=== PATIENT | female | born 1970 | race Caucasian/White ===

== ENCOUNTER 2017-12-03 08:49 | Emergency (ER) | payer OTHER, SELFPAY ==
[2017-12-03 08:58] VITALS: BP 146/79; PULSE 63; RESP 18; TEMP 36.7; O2SAT 95
--- NOTE | 2017-12-03 09:07 | DI.RAD_ITS ---
SYMPTOM/DIAGNOSIS: COUGH PA AND LATERAL CHEST: The heart is normal in size. The lungs are clear. The mediastinal structures and pleura appear intact. CONCLUSION: Normal chest. No evidence of acute cardiopulmonary disease.
--- NOTE | 2017-12-03 09:24 | W.ED.GENAD ---
Discharge Plan Disposition Patient Disposition: HOME Condition: Stable Discharge Details Chief Complaint: RespSymp Clinical Impression: Acute exacerbation of COPD with asthma Primary Care Provider: NONE,NONE ED Provider: Jeffrey Mendoza Home Meds and New Rx's Prescriptions: New prednisone 20 mg tablet 60 mg PO DAILY 5 Days Qty: 15 RF: 0 levofloxacin 750 mg tablet 750 mg PO DAILY Qty: 7 RF: 0 Continue ibuprofen [Ibuprofen IB] 200 MG tablet 800 mg PO TID PRN PRNRF: 0 Discharge Instructions Instructions: COPD (Chronic Obstructive Pulmonary Disease) (ED) Discharge Data Discharge Physician: Jeffrey Mendoza Medical Decision Making MDM Narrative Medical decision making narrative: 47 yo female with hx of asthma and chronic smoker who hasn't had inhalers for quite some time due to not having a pcp comes in with cc of 2-3 days of cough and wheezing. Her exam is consistent with copd exacerbation, will treat with albuterol and steroids and obtain chest xray to eval for infiltrate. Has no cheat pain, evidence of dvt and exam consistent with copd so doubt entities such as chf, acs or pe at this time pt remains stable, xray unremarkable on my read, but given I suspect she has copd and not asthma will start her on abx for likely copd exacerbation. She is going to contact a pcp on her own (offered to have her placed on our f/u list but she declined). REturn precautions given Differential Diagnosis copd exacerbation, pna, asthma ECG Data Attestation: I personally reviewed and interpreted this ECG (s) as follows: Prior ECG tracings: not available for review Interpretation: sinus rhythm, rate of 60, normal pr, no acute ischemic findings HPI General Mode of arrival: ambulatory. Date/Time Provider Initiated Documentation: 12/03/17 08:54. Limitations to Documentation: no limitations. Information obtained by: patient. History of Present Illness 47 year old F presents to the emergency department with the chief complaint of cough, described as moderate, with intensity rated at 3. No relieving factors improve symptom(s), No exacerbating factors reported . Patient notes other (wheezing). Patient did receive the following treatments prior to arrival, none Related Data Home Medications Medication Instructions Recorded Confirmed ibuprofen [Ibuprofen IB] 800 mg PO TID PRN PRN 03/21/16 12/03/17 Previous Rx's Medication Instructions Recorded levofloxacin 750 mg PO DAILY #7 tab 12/03/17 prednisone 60 mg PO DAILY 5 Days #15 tab 12/03/17 Allergies Allergy/AdvReac Type Severity Reaction Status Date / Time No Known Allergies Allergy Unverified 12/03/17 09:03 General Stated Complaint: RespSymp BARON: 3 Review of Systems Review of Systems All systems reviewed & are unremarkable except as noted in HPI and below Constitutional Denies fever(s) and Denies weakness Eyes Patient Denies loss of vision ENT Denies change in voice Cardiovascular Denies chest pain Respiratory Reports cough and Reports wheezing Gastrointestinal Denies abdominal pain, Denies nausea and Denies vomiting Genitourinary Denies dysuria Musculoskeletal Denies joint swelling Integumentary/Breasts Denies rash Neurologic Denies loss of vision and Denies weakness Psychiatric Denies depression Endocrine Denies cold intolerance and Denies heat intolerance Allergic/Immunologic Reports urticaria and Reports wheezing [facility] Social History Smoking/Tobacco Use Status: Current every day Exam Const General: no acute distress Orientation: alert HENMT Head: normal to inspection Ears: external ears normal General nose exam: external nose normal Mouth: moist mucous membranes Eyes General: appearance normal, both eyes and all related structures Neck Neck: normal visual inspection Resp Effort & Inspection: normal respiratory effort, able to speak in complete sentences and other (wheezing at the bases bilaterally) Cardio Rate: regular rate Skin General skin exam: no rashes or lesions noted Neuro General: alert and oriented x3 Extrem General: normal to inspection Psych Mental Status: mental status grossly normal Course Vital Signs Temperature 36.7 C 12/03/17 08:58 Pulse 63 12/03/17 08:58 Respiratory Rate 18 12/03/17 08:58 Blood Pressure 146/79 H 12/03/17 08:58 Pulse Oximetry 95 12/03/17 08:58 Temperature 36.7 C 12/03/17 08:58 Pulse 63 12/03/17 08:58 Respiratory Rate 18 12/03/17 08:58 Blood Pressure 146/79 H 12/03/17 08:58 Pulse Oximetry 95 12/03/17 08:58
--- NOTE | 2017-12-03 09:28 | ED.GENADUL_ITS ---
Discharge Plan Disposition Patient Disposition: HOME Condition: Stable Discharge Details Chief Complaint: RespSymp Clinical Impression: Acute exacerbation of COPD with asthma Primary Care Provider: NONE,NONE ED Provider: Jeffrey Mendoza Home Meds and New Rx's Prescriptions: New prednisone 20 mg tablet 60 mg PO DAILY 5 Days Qty: 15 RF: 0 levofloxacin 750 mg tablet 750 mg PO DAILY Qty: 7 RF: 0 Continue ibuprofen [Ibuprofen IB] 200 MG tablet 800 mg PO TID PRN PRNRF: 0 Discharge Instructions Instructions: COPD (Chronic Obstructive Pulmonary Disease) (ED) Discharge Data Discharge Physician: Jeffrey Mendoza Medical Decision Making MDM Narrative Medical decision making narrative: 47 yo female with hx of asthma and chronic smoker who hasn't had inhalers for quite some time due to not having a pcp comes in with cc of 2-3 days of cough and wheezing. Her exam is consistent with copd exacerbation, will treat with albuterol and steroids and obtain chest xray to eval for infiltrate. Has no cheat pain, evidence of dvt and exam consistent with copd so doubt entities such as chf, acs or pe at this time pt remains stable, xray unremarkable on my read, but given I suspect she has copd and not asthma will start her on abx for likely copd exacerbation. She is going to contact a pcp on her own (offered to have her placed on our f/u list but she declined). REturn precautions given Differential Diagnosis copd exacerbation, pna, asthma ECG Data Attestation: I personally reviewed and interpreted this ECG (s) as follows: Prior ECG tracings: not available for review Interpretation: sinus rhythm, rate of 60, normal pr, no acute ischemic findings HPI General Mode of arrival: ambulatory . Date/Time Provider Initiated Documentation: 12/03/17 08:54 . Limitations to Documentation: no limitations . Information obtained by: patient . History of Present Illness 47 year old F presents to the emergency department with the chief complaint of cough, described as moderate, with intensity rated at 3. No relieving factors improve symptom(s), No exacerbating factors reported . Patient notes other (wheezing). Patient did receive the following treatments prior to arrival, none Related Data Home Medications Medication Instructions Recorded Confirmed ibuprofen [Ibuprofen IB] 800 mg PO TID PRN PRN 03/21/16 12/03/17 Previous Rx's Medication Instructions Recorded levofloxacin 750 mg PO DAILY #7 tab 12/03/17 prednisone 60 mg PO DAILY 5 Days #15 tab 12/03/17 Allergies Allergy/AdvReac Type Severity Reaction Status Date / Time No Known Allergies Allergy Unverified 12/03/17 09:03 General Stated Complaint: RespSymp BARON: 3 Review of Systems Review of Systems All systems reviewed & are unremarkable except as noted in HPI and below Constitutional Denies fever(s) and Denies weakness Eyes Patient Denies loss of vision ENT Denies change in voice Cardiovascular Denies chest pain Respiratory Reports cough and Reports wheezing Gastrointestinal Denies abdominal pain, Denies nausea and Denies vomiting Genitourinary Denies dysuria Musculoskeletal Denies joint swelling Integumentary/Breasts Denies rash Neurologic Denies loss of vision and Denies weakness Psychiatric Denies depression Endocrine Denies cold intolerance and Denies heat intolerance Allergic/Immunologic Reports urticaria and Reports wheezing [facility] Social History Smoking/Tobacco Use Status: Current every day Exam Const General: no acute distress Orientation: alert HENMT Head: normal to inspection Ears: external ears normal General nose exam: external nose normal Mouth: moist mucous membranes Eyes General: appearance normal, both eyes and all related structures Neck Neck: normal visual inspection Resp Effort & Inspection: normal respiratory effort, able to speak in complete sentences and other (wheezing at the bases bilaterally) Cardio Rate: regular rate Skin General skin exam: no rashes or lesions noted Neuro General: alert and oriented x3 Extrem General: normal to inspection Psych Mental Status: mental status grossly normal Course Vital Signs Temperature 36.7 C 12/03/17 08:58 Pulse 63 12/03/17 08:58 Respiratory Rate 18 12/03/17 08:58 Blood Pressure 146/79 H 12/03/17 08:58 Pulse Oximetry 95 12/03/17 08:58 Temperature 36.7 C 12/03/17 08:58 Pulse 63 12/03/17 08:58 Respiratory Rate 18 12/03/17 08:58 Blood Pressure 146/79 H 12/03/17 08:58 Pulse Oximetry 95 12/03/17 08:58
[2017-12-03] MEDS: predniSONE 20 MG TAB 60 MG PO (09:41)
[2017-12-03] MEDS: Albuterol HFA 8 GM 60 PUFF INH IH (09:41)
[2017-12-03] MEDS: Inhaler, Assist Device 1 EACH MC (09:43)
[2017-12-03 10:15] VITALS: BP 142/81; PULSE 57; RESP 14; TEMP 36.9; O2SAT 96
[2017-12-03 10:25] VITALS: BP 142/81; PULSE 57; RESP 14; TEMP 36.9; O2SAT 96
== END 2017-12-03 10:26 | disposition home or self-care (01) ==
PROVIDERS: Emergency Provider Emergency Medicine
DX: J44.1 Chronic obstructive pulmonary disease with (acute) exacerbation (principal); J45.909 Unspecified asthma, uncomplicated; F17.210 Nicotine dependence, cigarettes, uncomplicated
CPT/HCPCS: 93005; 99284; 71046; 93010; 99285; J7512

== ENCOUNTER 2019-04-11 06:49 | Emergency (ER) | payer SELFPAY ==
[2019-04-11 06:53] VITALS: BP 115/91; PULSE 101; RESP 16; TEMP 36.7; O2SAT 98
[2019-04-11] MEDS: Normal Saline 1,000 ML 1000 ML IV (07:26)
[2019-04-11] MEDS: Ondansetron 4 MG/2 ML VIAL IVP (07:26)
[2019-04-11] MEDS: Normal Saline Flush 10 ML SYR IVP (07:26)
[2019-04-11 07:28] LABS: Abs Immature Grans 0.01 k/cumm (0.0-0.09); Absolute Basophil Count 0.02 k/cumm (0.0-0.2); Absolute Eosinophil Count 0.18 k/cumm (0.0-0.7); Absolute Lymphocyte Count 0.74 k/cumm (1.2-3.4); Absolute Monocyte Count 0.52 k/cumm (0.11-0.7); Absolute Neutrophil Count 8.81 k/cumm (1.2-6.7); Basophils % 0.2; Eosinophils % 1.8; HCT 46.9 % (36.0-46.0); HGB 15.6 g/dL (12.0-15.5); Immature Grans % 0.1 %; Lymphocytes % 7.2; Mean Corp. HGB Concentration 33.3 g/dL (32.0-36.0); Mean Corpuscular Hemoglobin 28.8 pg (27.0-33.0); Mean Corpuscular Volume 86.7 fL (80-95); Mean Platelet Volume 10.4 fL (8.0-11.0); Monocytes % 5.1; Neutrophils % 85.6; Platelet Count 278 x1000/uL (130-400); RBC 5.41 m/cumm (4.00-5.20); White Blood Cell Count 10.28 k/cumm (4.4-10.8)
[2019-04-11 07:39] LABS: ALT 23 U/L (14-59); AST 21 U/L (15-37); Albumin 3.7 g/dL (3.4-5.0); Alkaline Phosphatase 94 U/L (46-116); Anion Gap 9.5 mmol/L (3-11); BUN 17 mg/dL (7-18); Bilirubin, Total 0.9 mg/dL (0.2-1.0); CO2 25.5 mmol/L (21.0-32.0); CREATININE 0.83 mg/dL (0.55-1.02); Calcium 8.8 mg/dL (8.5-10.1); Chloride 106 mmol/L (98-107); Glucose 106 mg/dL (74-106); Sodium 141 mmol/L (136-145); Total Protein 7.5 g/dL (6.4-8.2)
--- NOTE | 2019-04-11 07:48 | ED.GENADUL_ITS ---
Discharge Plan Disposition Patient Disposition: HOME Condition: Stable Discharge Details Chief Complaint: Nausea/Vomit/Diar Clinical Impression: Vomiting, Urinary tract infection, Dehydration Primary Care Provider: None,None ED Provider: Vero Villanueva Home Meds and New Rx's Prescriptions: New cephalexin [Keflex] 500 mg capsule 500 mg PO TID Qty: 29 RF: 0 ondansetron 4 mg tablet,disintegrating 4 mg PO Q8H PRN (Reason: nausea and vomiting) Qty: 8 RF: 0 Continued ibuprofen [Ibuprofen IB] 200 MG tablet 800 mg PO TID PRN PRNRF: 0 Discharge Instructions Instructions: Cephalexin (By mouth), Ondansetron (By mouth), Dehydration (ED), Kidney Infection (ED), Acute Nausea and Vomiting (ED), Acute Diarrhea (ED) Additional Instructions: Please return immediately to the emergency department if you develop any new or worsening symptoms, if your condition does not improve as expected, or if you become otherwise concerned. It is extremely important that you call soon as possible to make an appointment to be seen in follow-up for this visit by your primary care doctor. Please be sure to drink plenty of fluids as we discussed. Discharge Data Discharge Date/Time-TO BE ENTERED AT DEPARTURE: 04/11/19 11:05 Medical Decision Making <Nilo Villanueva MD - Last Filed: 04/26/19 17:28> 89 --48-year-old female with history of renal stones here with nausea, vomiting, diarrhea over the past 2 to 3 days. She has diffuse abdominal cramping. Abdominal exam is benign. She does have right flank pain and right CVA tenderness. Dry mucous membranes. Suspect gastroenteritis. Consider biliary disease. Will check LFTs and lipase. Concern for dehydration. Consider electrolyte abnormalities. Consider renal stone. Plan to give IV fluid bolus and check labs and reassess. If creatinine normal, will give Toradol. <Vero Villanueva MD - Last Filed: 04/11/19 11:12> Elle Antony was signed out to me by Dr. Villanueva at time of shift change with UA, reassessment pending. UA concerning for possible UTI. 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 Patient reports that she is feeling better after fluids. Reports that her pain is mild and manageable. Patient is acutely nontoxic appearing, in no distress. Out of concern for possible infected stone, plan for CT renal. CT negative for acute process. Plan to treat for pyelonephritis with 3 times daily Keflex, also Rx for Zofran. Patient taking p.o. in the emergency department without issue. I had a lengthy discussion with patient regarding importance of adequate hydration at home. Patient reports that she does not currently have insurance or primary care doctor. Patient placed on care management list for assistance with insurance and establishing a PCP. I had a lengthy discussion with Patient regarding return to emergency department precautions, home care, and importance of outpatient follow-up. Pt verbalizes understanding of the plan and is amenable. Patient discharged to home with clear plan for outpatient follow-up. All questions were answered. Disposition decision was made weighing the risks and benefits of hospitalization versus outpatient treatment, the risk for further decompensation, and the patient's wishes. Medical Records Medical records reviewed: Yes I reviewed the patient's medical records. Lab Data Lab results reviewed: Yes I reviewed the patient's lab results. Labs: 04/11/19 08:47 Urine - Reflex from Ua Urine Culture - Pending Laboratory Tests Range/Units 04/11/19 04/11/19 04/11/19 07:17 07:17 08:47 WBC (4.4-10.8) k/cumm 10.28 RBC (4.00-5.20) m/cumm 5.41 H Hgb (12.0-15.5) g/dL 15.6 H Hct (36.0-46.0) % 46.9 H MCV (80-95) fL 86.7 MCH (27.0-33.0) pg 28.8 MCHC (32.0-36.0) g/dL 33.3 RDW (11.7-14.6) % 13.0 Plt Count (130-400) x1000/uL 278 MPV (8.0-11.0) fL 10.4 Immature Gran % % 0.1 Neutrophils % 85.6 Lymphocytes % 7.2 Monocytes % 5.1 Eosinophils % 1.8 Basophils % 0.2 Absolute Neutrophils (1.2-6.7) k/cumm 8.81 H Absolute Lymphocytes (1.2-3.4) k/cumm 0.74 L Absolute Monocytes (0.11-0.7) k/cumm 0.52 Absolute Eosinophils (0.0-0.7) k/cumm 0.18 Absolute Basophils (0.0-0.2) k/cumm 0.02 Sodium (136-145) mmol/L 141 Potassium (3.5-5.1) mmol/L 4.0 Chloride (98-107) mmol/L 106 Carbon Dioxide (21.0-32.0) mmol/L 25.5 Anion Gap (3-11) mmol/L 9.5 BUN (7-18) mg/dL 17 Creatinine (0.55-1.02) mg/dL 0.83 Estimated GFR/1.73 m2 (mL/min/1.73m2) >= 60.00 Glucose (74-106) mg/dL 106 Calcium (8.5-10.1) mg/dL 8.8 Total Bilirubin (0.2-1.0) mg/dL 0.9 AST (15-37) U/L 21 ALT (14-59) U/L 23 Alkaline Phosphatase (46-116) U/L 94 Total Protein (6.4-8.2) g/dL 7.5 Albumin (3.4-5.0) g/dL 3.7 Urine Color (Yellow) Yellow Urine Clarity (Clear) Clear Urine pH (5-8) 6.0 Ur Specific [facility] (1.005-1.025) 1.025 Urine Protein (Negative) mg/dL Negative Urine Ketones (Negative) mg/dL Negative Urine Blood (Negative) Trace-intact H Urine Nitrite (Negative) Negative Urine Bilirubin (Negative) Negative Urine Urobilinogen (Up TO 0.2) EU/dL 0.2 Ur Leukocyte Esterase (Negative) Trace H Urine RBC (0-2) HPF 3-5 H Urine WBC (0-5) HPF 5-10 Ur Epithelial Cells (Negative) HPF Rare Urine Crystals (Negative) HPF Negative Urine Bacteria (Negative) HPF Few Urine Casts (Negative) LPF Negative Urine Mucus (Negative) Trace Urine Other (Negative) Rare transitional Ur Culture Indicated? Yes Urine Glucose (Negative) mg/dL Negative HPI <Nilo Villanueva MD - Last Filed: 04/26/19 17:28> General Mode of arrival: ambulatory . Date/Time Provider Initiated Documentation: 04/11/19 07:07 . Limitations to Documentation: no limitations . Information obtained by: patient . HPI Narrative: 48-year-old female with history of renal stones, presents with chief complaint of loose stool. Patient notes that she has had diarrhea for the past 3 days. Stool is brown and watery. Nonbloody. Symptoms have been moderate to severe. She feels like she is dehydrated. She has associated nausea and vomiting for the past 2 days. She also notes some diffuse abdominal cramping. She does state positive sick contact including relative with similar gastrointestinal symptoms. No recent long distance travel. Patient also states that she has some right posterior flank pain over the past 1 to 2 days. She states that she feels it is her kidney. Pain is mild to moderate ache. No associated dysuria or hematuria. Patient believes symptoms related to dehydration. Related Data Home Medications Medication Instructions Recorded Confirmed ibuprofen [Ibuprofen IB] 800 mg PO TID PRN PRN 03/21/16 04/11/19 cephalexin [Keflex] 500 mg PO TID #29 cap 04/11/19 ondansetron 4 mg PO Q8H PRN #8 tab 04/11/19 Previous Rx's Medication Instructions Recorded cephalexin [Keflex] 500 mg PO TID #29 cap 04/11/19 ondansetron 4 mg PO Q8H PRN #8 tab 04/11/19 Allergies Allergy/AdvReac Type Severity Reaction Status Date / Time No Known Allergies Allergy Unverified 12/03/17 09:03 General Stated Complaint: Nausea/Vomit/Diar BARON: 3 Review of Systems <Nilo Villanueva MD - Last Filed: 04/26/19 17:28> All systems reviewed & are unremarkable except as noted in HPI and below Constitutional Constitutional: Denies fever(s) Gastrointestinal Gastrointestinal: Denies hematochezia, Reports diarrhea, Reports nausea and Reports vomiting Genitourinary Genitourinary: Reports as per HPI PFSH <Nilo Villanueva MD - Last Filed: 04/26/19 17:28> Medical History (Updated 04/11/19 @ 07:52 by Nilo Villanueva MD) Kidney stone (Chronic) Social History Smoking/Tobacco Use Status: Former Tobacco Use Quit Date: 11/30/17 Alcohol Intake: never Drug use: Rarely Substance use type: marijuana Do you feel safe at home: Yes Do you feel safe in your relationship?: Yes Exam <Nilo Villanueva MD - Last Filed: 04/26/19 17:28> Const General: cooperative and no acute distress HENMT Mouth: mucous membranes dry Eyes Conjunctivae: normal conjunctivae Sclera: normal sclerae Neck Neck: trachea midline and supple Resp Auscultation: clear to auscultation bilaterally, no rales, no rhonchi and no wheezes Cardio Jugular venous pressure: no JVD Rate: regular rate and not tachycardic Rhythm: regular rhythm GI Palpation: soft, not firm, no guarding, no masses, not rigid and nontender Back/Spine/Pelvis Back: CVA tenderness (Right) Skin General skin exam: no rashes or lesions noted Neuro General: alert, awake and tone normal Extrem General: no edema Psych Appearance: grossly normal Mental Status: mental status grossly normal Course <Nilo Villanueva MD - Last Filed: 04/26/19 17:28> Vital Signs Vital signs: Vital Signs Temperature 36.7 C 04/11/19 06:53 Pulse 101 H 04/11/19 06:53 Respiratory Rate 16 04/11/19 06:53 Blood Pressure 115/91 H 04/11/19 06:53 Pulse Oximetry 98 04/11/19 06:53 Temperature 36.7 C 04/11/19 06:53 Temperature Source Skin 04/11/19 06:53 Pulse 101 H 04/11/19 06:53 Respiratory Rate 16 04/11/19 06:53 Respiratory Effort 04/11/19 06:57 Blood Pressure 115/91 H 04/11/19 06:53 Blood Pressure Position Sitting 04/11/19 06:53 Pulse Oximetry 98 04/11/19 06:53 Oxygen Delivery Method Room Air 04/11/19 06:53 Oxygen Flow Rate 0 04/11/19 06:53 Pain Level 8 04/11/19 06:53 Lab/Test Results Lab/Test Results: Laboratory Tests Range/Units 04/11/19 04/11/19 07:17 07:17 WBC (4.4-10.8) k/cumm 10.28 RBC (4.00-5.20) m/cumm 5.41 H Hgb (12.0-15.5) g/dL 15.6 H Hct (36.0-46.0) % 46.9 H MCV (80-95) fL 86.7 MCH (27.0-33.0) pg 28.8 MCHC (32.0-36.0) g/dL 33.3 RDW (11.7-14.6) % 13.0 Plt Count (130-400) x1000/uL 278 MPV (8.0-11.0) fL 10.4 Immature Gran % % 0.1 Neutrophils % 85.6 Lymphocytes % 7.2 Monocytes % 5.1 Eosinophils % 1.8 Basophils % 0.2 Absolute Neutrophils (1.2-6.7) k/cumm 8.81 H Absolute Lymphocytes (1.2-3.4) k/cumm 0.74 L Absolute Monocytes (0.11-0.7) k/cumm 0.52 Absolute Eosinophils (0.0-0.7) k/cumm 0.18 Absolute Basophils (0.0-0.2) k/cumm 0.02 Sodium (136-145) mmol/L 141 Potassium (3.5-5.1) mmol/L 4.0 Chloride (98-107) mmol/L 106 Carbon Dioxide (21.0-32.0) mmol/L 25.5 Anion Gap (3-11) mmol/L 9.5 BUN (7-18) mg/dL 17 Creatinine (0.55-1.02) mg/dL 0.83 Estimated GFR/1.73 m2 (mL/min/1.73m2) >= 60.00 Glucose (74-106) mg/dL 106 Calcium (8.5-10.1) mg/dL 8.8 Total Bilirubin (0.2-1.0) mg/dL 0.9 AST (15-37) U/L 21 ALT (14-59) U/L 23 Alkaline Phosphatase (46-116) U/L 94 Total Protein (6.4-8.2) g/dL 7.5 Albumin (3.4-5.0) g/dL 3.7 Sign Out <Nilo Villanueva MD - Last Filed: 04/26/19 17:28> Sign Out Data: Sign Out Comment: Care signed out to Dr. Vero Villanueva with plan to follow-up on urinalysis, reassess patient and determine disposition. Last updated by Nilo Villanueva MD at 04/11/19 08:25
[2019-04-11] MEDS: Lactated Ringers 1,000 ML 1000 ML IV (08:05)
[2019-04-11] MEDS: Ketorolac 30 MG/ML VIAL IVP (08:05)
[2019-04-11 09:00] LABS: Bilirubin Negative (Negative); Blood Trace-intact (Negative); Clarity Clear (Clear); Glucose Negative (Negative); Ketones Negative (Negative); Leukocyte Esterase Trace (Negative); Nitrite Negative (Negative); Specific Gravity 1.025 (1.005-1.025); Urobilinogen 0.2 EU/dL (Up TO 0.2)
[2019-04-11 09:15] LABS: Bacteria Few HPF (Negative); Crystals Negative HPF (Negative); Epithelial Cells Rare HPF (Negative); Other Cells Rare Transitional (Negative)
[2019-04-11 09:16] LABS: C & S Indicated? Yes; Casts Negative LPF (Negative); Mucus Trace (Negative)
--- NOTE | 2019-04-11 09:58 | DI.CT_ITS ---
EXAM: CT RENAL COLIC WO CLINICAL HISTORY: right flank pain TECHNIQUE: Noncontrast. Images were obtained from lung bases through the ischial tuberosities. COMPARISON: No exams were available for comparison FINDINGS: There is mild right renal parenchymal scarring. No right-sided calcifications or hydronephrosis is seen. There are several tiny nonobstructing stones in the left kidney. No bladder calculi are seen. There are no perinephric collections. There is no bladder wall thickening. Lung bases show mild s carring or atelectasis. The liver, gallbladder, spleen, pancreas and left adrenal are unremarkable. There is mild prominence of the left adrenal. There is no bowel dilatation, wall thickening or free fluid. There are a few diverticula near the hepatic flexure of the colon. There is no evidence of diverticulitis. Uterus and ovaries are unremarkable. IMPRESSION: Nonobstructing left renal calculi. No evidence of right-sided calculi or hydronephrosis.
[2019-04-11] MEDS: Cephalexin 500 MG CAP PO (10:49)
[2019-04-11 10:52] VITALS: BP 136/72; PULSE 74; TEMP 36.9; O2SAT 96
[2019-04-11 11:04] VITALS: BP 136/72; PULSE 74; TEMP 36.9; O2SAT 96
== END 2019-04-11 11:05 | disposition home or self-care (01) ==
PROVIDERS: Student in an Organized Health Care Education/Training Program; Emergency Provider Student in an Organized Health Care Education/Training Program
DX: R11.2 Nausea with vomiting, unspecified (principal); N10 Acute pyelonephritis; E86.0 Dehydration; R19.7 Diarrhea, unspecified; M54.5 Low back pain; Z87.442 Personal history of urinary calculi
CPT/HCPCS: 36415; 80053; 96361; 96374; 96375; 99284; 74176; 81003; 81015; 85025; 87086; J1885; J2405

== ENCOUNTER 2021-03-02 16:04 | Emergency (ER) | payer MEDICAID, SELFPAY ==
[2021-03-02 16:12] VITALS: BP 148/106; PULSE 68; RESP 16; TEMP 35.4; O2SAT 100
--- NOTE | 2021-03-02 16:15 | DI.RAD_ITS ---
Exam(s) XR WRIST RT COMPLETE EXAM: XR WRIST RT COMPLETE CLINICAL HISTORY: wrist pain post fall. TECHNIQUE: 2D digital imaging was performed. COMPARISON: No exams were available for comparison FINDINGS: BONES: Nondisplaced fracture of the distal radius with transverse and vertically oriented components extending to the articular surface. No significant impaction. Ulnar styloid fracture, not displaced . No bony destructive lesion is seen. JOINTS: The carpal bones are normally aligned. SOFT TISSUE: Swelling IMPRESSION: Comminuted intra-articular fracture of the distal radius. Ulnar styloid fracture. DATA REPOSITORY: RADIATION DOSE DELIVERED:
[2021-03-02] MEDS: Ibuprofen 600 MG TAB PO (16:46)
[2021-03-02] MEDS: oxyCODONE 5 MG TAB PO (16:46)
--- NOTE | 2021-03-02 17:38 | W.ED.GENAD ---
Discharge Plan Disposition Patient Disposition: HOME Condition: Stable Discharge Details Clinical Impression: Fracture of wrist Primary Care Provider: None,None ED Provider: Nat Herman Discharge Instructions Instructions: Wrist Fracture in Adults (ED) Additional Instructions: Ice, elevate, ibuprofen 600 mg every 8 hours with food I am giving you a small amount of oxycodone, this medication is addictive and you should not drive for 8 hours after taking it If orthopedics not call you on Thursday morning, please schedule follow-up with them Keep your splint dry Elevate it above your heart as frequently as you are able to Return with worsening pain, numbness or tingling, or should you have symptoms Stand Alone Forms: Work Release Referrals: Jeanmarie Emmanuel MD [ [facility] STAFF PHYSICIAN] - Medical Decision Making Patient appears well, placed in splint, tolerated without incident, neurovascularly intact pre and post procedure Work note supplied Ibuprofen and Tylenol for pain control recommended Sling applied Orthopedic referral for reassessment on Thursday Patient has intra-articular radius and ulna fractures, the ulnar styloid has an avulsion Return precautions discussed and patient expressed understanding Small amount of opiate analgesia distributed, discussed with of addiction associated and inability to operate vehicle for 8 hours after taking this medication Medical Records Medical records reviewed: Yes I reviewed the patient's medical records. HPI General Mode of arrival: ambulatory. Date/Time Provider Initiated Documentation: 03/02/21 16:27. Limitations to Documentation: no limitations. Information obtained by: patient. HPI Narrative: This 50-year-old female presents status post slip and fall on ice. She reportedly fell on her right wrist which is her dominant wrist. She denies any additional injury. She denies any numbness or tingling. She is otherwise reportedly healthy. Specifically denies any anticoagulation. Related Data Allergies Allergy/AdvReac Type Severity Reaction Status Date / Time No Known Allergies Allergy Unverified 03/02/21 16:17 General Stated Complaint: Orthopedic BARON: 3 Review of Systems All systems reviewed & are unremarkable except as noted in HPI and below PFSH All Active Problems (Updated 03/02/21 @ 17:35 by ROLA Reynoso) Fracture of wrist (Acute) Medical History (Updated 03/02/21 @ 17:35 by ROLA Reynoso) Kidney stone Social History Smoking/Tobacco Use Status: Former Tobacco Use Quit Date: 11/30/17 Smoking risk assessment performed?: Yes Alcohol Intake: never Drug use: Rarely Substance use type: marijuana Do you feel safe at home: Yes Do you feel safe in your relationship?: Yes Exam Const General: cooperative and comfortable HENMT Head: normal to inspection Neck Other: No midline tenderness Neuro General: patient alert and patient oriented x3 Other: GCS 15 Extrem Other: Right wrist swelling, neurovascularly intact, no elbow tenderness Course Vital Signs Vital signs: Vital Signs Temperature 35.4 C L 03/02/21 16:12 Pulse 68 03/02/21 16:12 Respiratory Rate 16 03/02/21 16:12 Blood Pressure 148/106 H 03/02/21 16:12 Pulse Oximetry 100 03/02/21 16:12 Temperature 35.4 C L 03/02/21 16:12 Temperature Source Temporal Artery Scan 03/02/21 16:12 Pulse 68 03/02/21 16:12 Respiratory Rate 16 03/02/21 16:12 Respiratory Effort 03/02/21 16:19 Blood Pressure 148/106 H 03/02/21 16:12 Blood Pressure Position Sitting 03/02/21 16:12 Pulse Oximetry 100 03/02/21 16:12 Oxygen Delivery Method Room Air 03/02/21 16:12 Oxygen Flow Rate 0 03/02/21 16:12 Pain Level 10 03/02/21 16:12 Procedures Orthopedic Splinting/Casting Injury #1: Side: right Upper Extremity Injury Location: wrist Upper Extremity Immobilizer: wrist splint Additional Comments: Neurovascularly intact pre and post procedure
[2021-03-02 17:58] VITALS: BP 130/80; O2SAT 96
--- NOTE | 2021-03-02 18:28 | DI.VRAD_ITS ---
PROCEDURE INFORMATION: Exam: XR Right Wrist Exam date and time: 03/02/2021 4:28 PM Age: 50 years old Clinical indication: Other: Wrist post fall TECHNIQUE: Imaging protocol: XR Right wrist. Views: 3 or more views. COMPARISON: No relevant prior studies available. FINDINGS: Bones/joints: A nondisplaced intra-articular fracture of distal right radius is seen. Nondisplaced ulnar styloid fracture. Soft tissues: Soft tissue swelling noted. IMPRESSION: Mildly comminuted nondisplaced intra-articular distal right radial fracture Dictated and Authenticated by: Raudel Dickens MD. Ordering:YFN Johns MD
== END 2021-03-02 17:53 | disposition home or self-care (01) ==
PROVIDERS: Emergency Provider Physician Assistant
DX: S52.591A Other fractures of lower end of right radius, initial encounter for closed fracture (principal); S52.291A Other fracture of shaft of right ulna, initial encounter for closed fracture; W00.0XXA Fall on same level due to ice and snow, initial encounter
CPT/HCPCS: 29125; 99283; 73110

== ENCOUNTER 2021-03-12 14:50 | Outpatient (CLI) | payer MEDICAID, SELFPAY ==
--- NOTE | 2021-03-12 10:45 | DI.RAD_ITS ---
Exam(s) XR WRIST RT LIMITED EXAM: XR WRIST RT LIMITED CLINICAL HISTORY: right wrist fracture TECHNIQUE: COMPARISON: CR,XR XR WRIST RT COMPLETE from 03/02/2021 FINDINGS: Two views were obtained. Previous described fractures of distal radius and ulnar styloid are again n oted, no gross interval change in alignment of fracture fragments comparison with examination of [facility]. IMPRESSION: RADIATION DOSE DELIVERED: Total DLP
== END 2021-03-12 14:51 | disposition home or self-care (01) ==
LOC: DIORS 14:51
PROVIDERS: PCP Nurse Practitioner Family; Visit Provider Physician Assistant
DX: S52.291D Other fracture of shaft of right ulna, subsequent encounter for closed fracture with routine healing (principal); S52.591D Other fractures of lower end of right radius, subsequent encounter for closed fracture with routine healing; W00.0XXD Fall on same level due to ice and snow, subsequent encounter
CPT/HCPCS: 73100

== ENCOUNTER 2021-04-29 08:17 | Outpatient (CLI) | payer MEDICAID, SELFPAY ==
--- NOTE | 2021-04-29 08:00 | DI.RAD_ITS ---
Exam(s) XR WRIST RT LIMITED EXAM: XR WRIST RT LIMITED CLINICAL HISTORY: f/u R DISTAL RADIUS FRACTURE. TECHNIQUE: 2D digital imaging was performed. COMPARISON: CR XR WRIST RT LIMITED from 03/12/2021 FINDINGS: There has been significant healing at the distal radial fracture site with fracture line barely visib le at this time and denoted by sclerotic healing. Mildly displaced fracture of the ulnar styloid tip is noted. IMPRESSION: DATA REPOSITORY: RADIATION DOSE DELIVERED:
== END 2021-04-29 08:18 | disposition home or self-care (01) ==
LOC: DIORS 08:17
PROVIDERS: PCP Nurse Practitioner Family; Referring Provider Nurse Practitioner Family; Visit Provider Student in an Organized Health Care Education/Training Program
DX: S52.591D Other fractures of lower end of right radius, subsequent encounter for closed fracture with routine healing (principal); S52.291D Other fracture of shaft of right ulna, subsequent encounter for closed fracture with routine healing; W00.0XXD Fall on same level due to ice and snow, subsequent encounter
CPT/HCPCS: 73100

== ENCOUNTER 2021-06-03 09:03 | Outpatient (CLI) | payer MEDICAID, SELFPAY ==
--- NOTE | 2021-06-03 08:45 | DI.RAD_ITS ---
Exam(s) XR WRIST RT LIMITED EXAM: XR WRIST RT LIMITED CLINICAL HISTORY: rt wrist fracture pain. TECHNIQUE: 2D digital imaging was performed. COMPARISON: CR XR WRIST RT LIMITED from 04/29/2021 FINDINGS: Two views There has been further healing at the distal radius fracture site. The healing fracture site is agai n denoted by thin dense line. No significant ulnar variance. Ulnar styloid fracture again noted. S caphoid unremarkable IMPRESSION: Further healing. DATA REPOSITORY: RADIATION DOSE DELIVERED:
== END 2021-06-03 09:04 | disposition home or self-care (01) ==
LOC: DIORS 09:04
PROVIDERS: PCP Nurse Practitioner Family; Visit Provider Physician Assistant Surgical
DX: M25.531 Pain in right wrist; S52.514D Nondisplaced fracture of right radial styloid process, subsequent encounter for closed fracture with routine healing; S52.291D Other fracture of shaft of right ulna, subsequent encounter for closed fracture with routine healing; W00.0XXD Fall on same level due to ice and snow, subsequent encounter
CPT/HCPCS: 73100

== ENCOUNTER → 2021-07-29 02:22 | Outpatient (CLI) | payer MEDICAID, SELFPAY ==
--- NOTE | 2021-07-29 06:30 | DI.MRI_ITS ---
Exam(s) MR UPPER JOINT RT WO EXAM: MR UPPER JOINT RT WO CLINICAL HISTORY: PAIN,FX RT DISTAL RADIUS,S52.501A. TECHNIQUE: Multiplanar multisequence MRI was performed. COMPARISON: None. FINDINGS: BONES: There is again seen a healing fracture involving the distal radius. The fracture line is amber tly visualized. Minimal marrow edema is present. The ulnar solid process fracture appears stable. No additional fracture is identified. JOINTS: The radiocarpal joint is unremarkable. The carpal joints are unremarkable. TENDONS: Flexors: Unremarkable. Extensors: Unremarkable. MUSCLES: Unremarkable. MEDIAN NERVE: Unremarkable on this noncontrast examination. ULNAR NERVE: Unremarkable on this noncontrast examination. SOFT TISSUES: Unremarkable. LIGAMENTS: Unremarkable. TRIANGULAR FIBROCARTILAGE: Unremarkable. OTHER: IMPRESSION: Findings again seen a fracture involving the distal radius and ulna. No acute abnormality is identif ied. DATA REPOSITORY:
== END ==
PROVIDERS: PCP Nurse Practitioner Family; Visit Provider Student in an Organized Health Care Education/Training Program
DX: S52.291D Other fracture of shaft of right ulna, subsequent encounter for closed fracture with routine healing (principal); S52.591D Other fractures of lower end of right radius, subsequent encounter for closed fracture with routine healing; W00.0XXD Fall on same level due to ice and snow, subsequent encounter
CPT/HCPCS: 73221

== ENCOUNTER 2021-08-13 06:51 | Emergency (ER) | payer MEDICAID, SELFPAY ==
[2021-08-13 06:58] VITALS: BP 151/108; PULSE 89; RESP 18; TEMP 36.4; O2SAT 100
[2021-08-13 07:14] VITALS: O2SAT 98
--- NOTE | 2021-08-13 07:15 | DI.RAD_ITS ---
Exam(s) XR PORTABLE CHEST AP EXAM: XR PORTABLE CHEST AP CLINICAL HISTORY: cough, crackles and ronchi, r/o pneumonia. TECHNIQUE: 2D digital imaging was performed. COMPARISON: CR XR CHEST 2V PA LATERAL from 12/03/2017 FINDINGS: Single AP lordotic portable view. Heart size is upper normal. The mediastinum is not widened. Lungs are clear. No infiltrates nor obvious pleural effusions. IMPRESSION: No acute pulmonary findings on this single AP portable view of the chest. DATA REPOSITORY: RADIATION DOSE DELIVERED: All CT scans at this facility use at least one of these dose optimization techniques: automated exposure control; mA and/or kV adjustment per patient size (includes targeted e xams where dose is matched to clinical indication); or iterative reconstruction.
[2021-08-13 07:20] VITALS: O2SAT 96
--- NOTE | 2021-08-13 07:26 | ED.GENADUL_ITS ---
Discharge Plan Disposition Patient Disposition: HOME Condition: Stable Discharge Details Clinical Impression: Cough, Nausea vomiting and diarrhea, Acute dehydration Primary Care Provider: Gabi Schulte ED Provider: Joselito Fernández Home Meds and New Rx's Prescriptions: New azithromycin 250 mg tablet 250 mg PO DAILY 7 Days Qty: 7 0RF Rx Instructions: start on day 2 of therapy Discharge Instructions Instructions: Dehydration (ED), Acute Bronchitis (ED) Additional Instructions: Small, frequent sips of fluids to maintain hydration. As discussed we will treat you for bronchitis. Antibiotics to begin today and continue for 1 week's time by prescription. Return to the emergency department for any acute concerns. Your COVID, influenza and RSV test was negative today. Medical Decision Making <Narciso Walters, - Last Filed: 08/13/21 07:36> This is a pleasant 51-year-old female with a past medical history of kidney stones, who has never smoked tobacco before, who did have COVID in March, presents today for cough, vomiting and diarrhea for the last 4 days. Cough is productive with green sputum. She denies any chest pain or shortness of breath. In addition to this her vomiting and diarrhea has been persistent. She states that she is unable to keep anything down whatsoever. She denies any blood in her vomit or diarrhea. She denies any abdominal pain just nausea and achiness. She denies any other sick contacts. She does admit to cramping in her hands and arms as of late with all the diarrhea and the lack of maintained p.o. intake. Patient denies any exposure to large aboveground Wells/shallow wells, water storage containment tanks, or air conditioning units. Patient has no other complaints at this time. No other modifying factors. Physical exam demonstrates notable crackles and rhonchi throughout the lower lung green. She has notably dry mucous membranes. Vital signs are stable. Suspect community-acquired pneumonia. Suspect electrolyte abnormality secondary to dehydration. Patient's risk factors seem low for Legionella, however with the diarrhea and suspected pneumonia I do feel that further testing is indicated for this. We will send out a urine antigen test. We will rehydrate, evaluate for these concerning etiologies, monitor closely and reassess. On exam patient demonstrates no abdominal tenderness necessitating emergent imaging. Case was signed out to my colleague Dr. Joselito Fernández for follow-up on labs and imaging. We will rehydrate, give a liter of normal saline and lactated Ringer's, give Zofran <Joselito Fernández MD - Last Filed: 08/13/21 13:23> Lab Data Lab results reviewed: Yes I reviewed the patient's lab results. Labs: Received signout from Dr. Walters. Patient improved with fluids, parenteral medications. Her chest x-ray was without focal infiltrate. Stool studies were obtained. Her other laboratories are reassuring with a white count of 7, medic at 46 and platelets 250. Unremarkable chemistries. Will treat for atypical bronchitis. Discussed with her home management. She is stable and appropriate for discharge to home at this time.wr HPI <Narciso Walters DO - Last Filed: 08/13/21 07:36> General Date/Time Provider Initiated Documentation: 08/13/21 06:57 . HPI Narrative: This is a pleasant 51-year-old female with a past medical history of kidney stones, who has never smoked tobacco before, who did have COVID in March, presents today for cough, vomiting and diarrhea for the last 4 days. Cough is productive with green sputum. She denies any chest pain or shortness of breath. In addition to this her vomiting and diarrhea has been persistent. She states that she is unable to keep anything down whatsoever. She denies any blood in her vomit or diarrhea. She denies any abdominal pain just nausea and achiness. She denies any other sick contacts. She does admit to cramping in her hands and arms as of late with all the diarrhea and the lack of maintained p.o. intake. Patient denies any exposure to large aboveground Wells/shallow wells, water storage containment tanks, or air conditioning units. Patient has no other complaints at this time. No other modifying factors. Related Data Home Medications Medication Instructions Recorded Confirmed azithromycin 250 mg tablet 250 mg PO DAILY 7 days #7 tabs 08/13/21 Previous Rx's Medication Instructions Recorded azithromycin 250 mg tablet 250 mg PO DAILY 7 days #7 tabs 08/13/21 Allergies Allergy/AdvReac Type Severity Reaction Status Date / Time No Known Allergies Allergy Unverified 08/13/21 07:39 General Stated Complaint: Nausea/Vomit/Diar BARON: 3 Review of Systems <Narciso Walters DO - Last Filed: 08/13/21 07:36> All systems reviewed & are unremarkable except as noted in HPI and below PFSH <Narciso Walters DO - Last Filed: 08/13/21 07:36> All Active Problems (Updated 08/13/21 @ 07:36 by Narciso Walters DO) Cough (Acute) Nausea vomiting and diarrhea (Acute) Acute dehydration (Acute) Fracture of right distal radius (Acute 03/02/21) Medical History Kidney stone Social History Smoking/Tobacco Use Status: Former Tobacco Use Quit Date: 11/30/17 Smoking risk assessment performed?: Yes Alcohol Intake: never Drug use: Rarely Substance use type: marijuana Current gender identity: female Do you feel safe at home: Yes Do you feel safe in your relationship?: Yes Exam <Narciso Walters DO - Last Filed: 08/13/21 07:36> Narrative Exam Narrative: 1.Const: Well-nourished, Well-developed, appearing stated age 2.Eyes: PERRL, no conjunctival injection, and symmetrical lids. 3.ENT: Atraumatic external nose and ears. Notably dry MM. Neck: Symmetric, trachea midline, No thyromegaly. 4.CVS: +S1/S2, No murmurs or gallops. Peripheral pulses 2+ and equal in all extremities. Brisk capillary refill in all extremities. 5.RESP: Scattered crackles and rhonchi throughout, worse in the lower lung field 6.GI: Soft, Nontender/Nondistended, No hepatosplenomegaly. No guarding or rebound. 7.MSK: Normocephalic/Atraumatic, Extremities w/o deformity or ttp No cyanosis or clubbing, Normal movement of all extremities 8.Skin: Warm, Dry. No rashes or lesions. 9.Neuro: lead slot technician II-XII grossly intact. Sensation grossly intact, no focal neurologic deficits. 10.Psych: (AAO) x3. Appropriate mood and affect Course <Narciso Walters DO - Last Filed: 08/13/21 07:36> Vital Signs Vital signs: Vital Signs Temperature 36.4 C L 08/13/21 06:58 Pulse 89 05/31/22 06:58 Respiratory Rate 18 08/13/21 06:58 Blood Pressure 151/108 H 08/13/21 06:58 Pulse Oximetry 100 08/13/21 06:58 Temperature 36.4 C L 08/13/21 06:58 Temperature Source Temporal Artery Scan 08/13/21 06:58 Pulse 89 08/13/21 06:58 Respiratory Rate 18 08/13/21 06:58 Respiratory Effort Non-Labored 08/13/21 07:01 Blood Pressure 151/108 H 08/13/21 06:58 Blood Pressure Position Sitting 08/13/21 06:58 Pulse Oximetry 100 08/13/21 06:58 Oxygen Delivery Method Room Air 08/13/21 06:58 Oxygen Flow Rate 0 08/13/21 06:58 Sign Out <Narciso Walters DO - Last Filed: 08/13/21 07:36> Sign Out Data: Sign Out Comment: Cough, nausea, vomiting and diarrhea. No tenderness in abdomen. Follow-up on chest x-ray labs and reassessment after rehydration Last updated by Narciso Walters DO at 08/13/21 07:39
[2021-08-13 07:34] LABS: Abs Immature Grans 0.02 10^3/uL (0.0-0.06); Absolute Basophil Count 0.04 10^3/uL (0.0-0.2); Absolute Eosinophil Count 0.04 10^3/uL (0.0-0.7); Absolute Lymphocyte Count 0.77 10^3/uL (1.2-3.4); Absolute Monocyte Count 0.39 10^3/uL (0.1-0.8); Absolute Neutrophil Count 6.13 10^3/uL (1.2-6.7); Basophils % 0.5; Eosinophils % 0.5; HCT 46.7 % (36.0-46.0); HGB 15.5 g/dL (11.2-15.7); Immature Grans % 0.3; Lymphocytes % 10.4; MCH 28.2 pg (27.0-33.0); MCHC 33.2 % (32.0-36.0); MCV 85 fL (80-95); MPV 10.7 fL (8.0-11.0); Monocytes % 5.3; Platelet Count 250 10^3/uL (130-400); RBC 5.49 10^6/uL (3.93-5.22); RDW 12.2 % (11.7-14.6); WBC 7.39 10^3/uL (4.4-10.8)
[2021-08-13] MEDS: Ondansetron 4 MG/2 ML VIAL IVP (07:35)
[2021-08-13] MEDS: Normal Saline 1,000 ML 1000 ML IV ×2 (07:35→09:36)
[2021-08-13 07:48] LABS: ALT 25 U/L (14-59); AST 21 U/L (15-37); Albumin 4.1 g/dL (3.4-5.0); Alkaline Phosphatase 98 U/L (46-116); Anion Gap 13.1 mmol/L (3-11); BUN 12 mg/dL (7-18); Bilirubin, Total 0.9 mg/dL (0.2-1.0); CO2 23.9 mmol/L (21.0-32.0); CREATININE 0.9 mg/dL (0.55-1.02); Calcium 9.5 mg/dL (8.5-10.1); Chloride 103 mmol/L (98-107); Glucose 123 mg/dL (74-106); Lipase 178 U/L (73-393); Potassium 3.7 mmol/L (3.5-5.1); Sodium 140 mmol/L (136-145); Total Protein 8.3 g/dL (6.4-8.2)
[2021-08-13 08:09] LABS: COVID-19 PCR Negative (Negative); Influenza A PCR Negative (Negative); Influenza B PCR Negative (Negative); RSV PCR Negative (Negative)
[2021-08-13] MEDS: Lactated Ringers 1,000 ML 1000 ML IV (08:26)
[2021-08-13 09:29] LABS: Bilirubin Negative (Negative); Blood Small (Negative); Clarity Clear (Clear); Glucose Negative (Negative); Ketones 40 mg/dL (Negative); Leukocyte Esterase Negative (Negative); Nitrite Negative (Negative); Specific Gravity 1.015 (1.005-1.025); Urobilinogen 0.2 EU/dL (Up TO 0.2); pH 6.5 (5-8)
[2021-08-13] MEDS: ACETAMINOPHEN 1,000 MG/100 ML BTL 400 MG IVPB (09:39)
[2021-08-13 10:02] LABS: Bacteria Rare HPF (Negative); C & S Indicated? No; Casts Negative LPF (Negative); Crystals Negative HPF (Negative); Epithelial Cells Few HPF (Negative); Mucus Trace (Negative); WBC 0-2 HPF (0-5)
[2021-08-13] MEDS: Azithromycin 250 MG TAB 500 MG PO (11:09)
[2021-08-13 11:10] VITALS: BP 163/80; PULSE 71; RESP 16; TEMP 36.7; O2SAT 95
[2021-08-13 23:35] LABS: Legionella Ag Detection Urine Negative (Negative)
== END 2021-08-13 11:23 | disposition home or self-care (01) ==
PROVIDERS: Student in an Organized Health Care Education/Training Program; Emergency Provider Emergency Medicine; PCP Nurse Practitioner Family
DX: R05.1 Acute cough (principal); R11.2 Nausea with vomiting, unspecified; R19.7 Diarrhea, unspecified; E86.0 Dehydration; Z86.16 Personal history of COVID-19
CPT/HCPCS: 36415; 80053; 83690; 87329; 87449; 87637; 96361; 96365; 96375; 99284; 71045; 81003; 81015; 85025; J0131; J2405

== ENCOUNTER 2021-09-25 16:19 | Outpatient (REF) | payer MEDICAID, SELFPAY ==
[2021-09-25 15:19] LABS: HCT 43.7 % (36.0-46.0); HGB 14.5 g/dL (11.2-15.7); MCH 28.3 pg (27.0-33.0); MCHC 33.2 % (32.0-36.0); MCV 85 fL (80-95); MPV 11.2 fL (8.0-11.0); Platelet Count 249 10^3/uL (130-400); RBC 5.13 10^6/uL (3.93-5.22); RDW 12.4 % (11.7-14.6); RDW-SD 38.8 fL; WBC 7.15 10^3/uL (4.4-10.8)
[2021-09-25 15:40] LABS: Hemoglobin A1C 5.6 % (<5.7)
[2021-09-25 15:57] LABS: TSH (W/Ref FT4) 1.39 uIU/mL (0.36-3.74)
[2021-09-25 16:22] LABS: Calculated LDL 144 mg/dL (<100); Cholesterol 213 mg/dL (<200); HDL Cholesterol 58 mg/dL (40-60); Triglyceride 56 mg/dL (<150)
[2021-09-26 08:53] LABS: HIV-1/2 Ag & Ab Screen Negative (Negative)
[2021-09-26 09:03] LABS: Hepatitis C Ab w Rflx HCV PCR Negative (Negative)
== END 2021-09-25 16:20 | disposition home or self-care (01) ==
LOC: NCHCN 16:19
PROVIDERS: PCP Nurse Practitioner Family; Visit Provider Family Medicine
DX: R53.83 Other fatigue (principal); Z11.4 Encounter for screening for human immunodeficiency virus [HIV]; Z11.59 Encounter for screening for other viral diseases; Z13.1 Encounter for screening for diabetes mellitus; Z13.220 Encounter for screening for lipoid disorders
CPT/HCPCS: 80061; 85027; 86803; 87389; 83036; 84443

== ENCOUNTER 2021-10-31 10:23 | Outpatient (REF) | payer MEDICAID, SELFPAY ==
--- NOTE | 2021-10-31 09:00 | PAPFT_PTH ---
PATIENT: Elle Antony LOC: [facility]#:[id number] AGE/SX: 51/F ROOM: RE10/31/[address]: Carol Thakur : 1970 BED: DIS: 10/31/2021 SPEC #: [id number] RECD: 10/31/21 17:01 STATUS: ROSALVA RERachel #: [id number] ESTRADA: 10/31/21 09:[address]: Carol Thakur DEPT: [facility] Cytology RECD BY: Nat Koroma ENTERED: 10/31/21 17:01 SP TYPE: PAPFT GERMÁNHR DR: Gabi Schulte Tissues: 1 - CX/ENDOCX FOR PAP SMEARS Procedures: PAP THIN PREP/UVM Screening HPV DNA PROBE Comments: [id number]
== END 2021-10-31 10:24 | disposition home or self-care (01) ==
LOC: NCHCN 10:23
PROVIDERS: PCP Nurse Practitioner Family; Visit Provider Family Medicine
DX: Z12.4 Encounter for screening for malignant neoplasm of cervix (principal); Z11.51 Encounter for screening for human papillomavirus (HPV)
CPT/HCPCS: 88142; 87624

== ENCOUNTER 2022-07-14 07:26 | Emergency (ER) | payer MEDICAID, SELFPAY ==
[2022-07-14] VITALS (52 sets, daily range): BP systolic 118–158; BP diastolic 78–95; PULSE 72–115; RESP 5–28; TEMP 36.5–37; O2SAT 90–98
[2022-07-14] MEDS: Lactated Ringers 1,000 ML 1000 ML IV (08:03)
[2022-07-14 08:05] LABS: Source Nasal/Nares
[2022-07-14 08:08] LABS: Abs Immature Grans 0.07 10^3/uL (0.0-0.06); Absolute Eosinophil Count 0.03 10^3/uL (0.0-0.7); Absolute Lymphocyte Count 1.61 10^3/uL (1.2-3.4); Absolute Monocyte Count 1.16 10^3/uL (0.1-0.8); Basophils % 0.3; Eosinophils % 0.2; HCT 46.6 % (36.0-46.0); HGB 15.9 g/dL (11.2-15.7); Immature Grans % 0.4; Lymphocytes % 9.3; MCH 28.2 pg (27.0-33.0); MCHC 34.1 % (32.0-36.0); MCV 83 fL (80-95); MPV 10.5 fL (8.0-11.0); Monocytes % 6.7; Neutrophils % 83.1; Platelet Count 323 10^3/uL (130-400); RBC 5.63 10^6/uL (3.93-5.22); RDW 12.5 % (11.7-14.6); RDW-SD 37.9 fL; WBC 17.29 10^3/uL (4.4-10.8)
[2022-07-14 08:09] LABS: Absolute Basophil Count 0.05 10^3/uL (0.0-0.2); Absolute Neutrophil Count 14.37 10^3/uL (1.2-6.7)
[2022-07-14 08:28] LABS: ALT 29 U/L (14-59); AST 21 U/L (15-37); Albumin 4.1 g/dL (3.4-5.0); Alkaline Phosphatase 97 U/L (46-116); Anion Gap 10.8 mmol/L (3-11); BUN 9 mg/dL (7-18); CO2 25.2 mmol/L (21.0-32.0); Calcium 9.8 mg/dL (8.5-10.1); Chloride 104 mmol/L (98-107); Estimated GFR 66.95 (mL/min/1.73m2); Glucose 117 mg/dL (74-106); Lipase 22 U/L (16-77); Magnesium 1.8 mg/dL (1.8-2.4); Potassium 3.3 mmol/L (3.5-5.1); Sodium 140 mmol/L (136-145); Total Protein 8.8 g/dL (6.4-8.2)
[2022-07-14 09:19] LABS: COVID-19 PCR Negative (Negative)
[2022-07-14] MEDS: DOXYCYCLINE 100 MG in Normal Saline 100 ML IVPB (09:28)
[2022-07-14] MEDS: Ondansetron 4 MG/2 ML VIAL IVP (09:28)
--- NOTE | 2022-07-14 09:30 | DI.RAD_ITS ---
Exam(s) XR CHEST 2V PA LATERAL EXAM: XR CHEST 2V PA LATERAL CLINICAL HISTORY: cough TECHNIQUE: 2D digital imaging was performed of the chest. Two images were obtained. PA and lateral views were obtained. COMPARISON: CR XR CHEST 2V PA LATERAL from 12/03/2017 CR XR PORTABLE CHEST AP from 08/13/2021 FINDINGS: MEDIASTINUM: Normal. HEART: Normal. PULMONARY VASCULATURE: Normal. LUNGS: Clear. PLEURAL SPACE: No pleural effusion or pneumothorax. BONE:Within normal limits for the patient's age. OTHER FINDINGS:Normal. IMPRESSION: No acute pulmonary findings. DATA REPOSITORY: RADIATION DOSE DELIVERED:
--- NOTE | 2022-07-14 09:43 | ED.GENADUL_ITS ---
Discharge Plan Disposition Patient Disposition: Home Condition: Stable Discharge Details Clinical Impression: Acute bronchitis, Nausea & vomiting, Acute dehydration, Acute hypokalemia Primary Care Provider: Carol Thakur ED Provider: Nilo Villanueva Home Meds and New Rx's Prescriptions: New albuterol sulfate 90 mcg/actuation HFA aerosol inhaler 2 puff inhalation Q6H PRNQty: 8.5 0RF ondansetron 4 mg tablet,disintegrating 4 mg PO Q8H PRN (Reason: nausea and vomiting) Qty: 10 0RF doxycycline hyclate 100 mg tablet 100 mg PO BID Qty: 10 0RF Rx Instructions: 5 days Continued sertraline 50 mg tablet 50 mg PO DAILY budesonide-formoterol [Symbicort] 80-4.5 mcg/actuation HFA aerosol inhaler 2 puff inhalation BID Discharge Instructions Instructions: Hypokalemia (ED), Acute Bronchitis (ED), Acute Nausea and Vomiting (ED) Additional Instructions: Please drink plenty of fluids to stay hydrated. Allow for plenty of rest. Take antibiotic as prescribed. Use nausea medicine as prescribed for nausea. If you have wheeze or shortness of breath, use albuterol inhaler as follows: 2 puffs every 4-6 hours as needed for wheeze, use with spacer. Please contact your primary care physician to arrange follow-up. Return to the ER immediately for any worsening or new concerning symptoms. Stand Alone Forms: Work Release Referrals: Carol Thakur MD [Primary Care Provider] - Medical Decision Making 945 --52-year-old female with history of asthma, here with cough for the past 1 week productive of green sputum, now with nausea and vomiting over the past 3 days and inability to tolerate p.o. fluids, mild to moderate headache, subjective fever. Patient is saturating well in no respiratory distress. She does have intermittently productive cough. Patient does have rales on the right with rhonchi bilaterally. Plan for IV fluid bolus and Zofran IV. We will give acetaminophen IV for headache. Concern for pneumonia. Plan to obtain chest x-ray. Initial labs reviewed and leukocytosis noted. Mild hypokalemia noted. 1100 --chest x-ray was interpreted by radiology:No acute pulmonary findings. Patient reassessed and feeling better. Tolerating p.o. intake. Patient was given potassium supplementation orally. Plan for discharge with outpatient follow-up with PCP. I will prescribe 5-day course of doxycycline to treat bronchitis. I will also prescribe ondansetron for her nausea. Patient was provided albuterol inhaler, she has a spacer at home. She was instructed to use for wheeze or shortness of breath. Disposition decision was made weighing the risks and benefits of hospitalization versus outpatient treatment, the risk for further decompensation, and the patient's wishes. The patient was stable and requested discharge. Prior to discharge, my usual and customary return precautions were reviewed with the patient - this included follow-up instructions and reason to return to the emergency department if condition worsens, does not improve as expected, or other new concerns arise. HPI General Mode of arrival: ambulatory . Date/Time Provider Initiated Documentation: 07/14/22 07:50 . Limitations to Documentation: no limitations . Information obtained by: patient . HPI Narrative: 52-year-old female with history of asthma here with chief complaint of vomiting. Patient notes nausea and vomiting over the past 3 days and inability to keep any fluids down. Symptoms are severe. She has had cramping in her hands bilaterally. She also notes associated headache. Patient states that she has had intermittently productive cough over the past 1 week. Cough productive of green sputum. She does note some subjective fevers. Patient is a daycare worker. Related Data Home Medications Medication Instructions Recorded Confirmed budesonide-formoterol HFA 80 2 puff inhalation BID 12/25/21 07/14/22 mcg-4.5 mcg/actuation aerosol inhaler (Symbicort) sertraline 50 mg tablet 50 mg PO DAILY 12/25/21 07/14/22 albuterol sulfate 90 mcg/actuation 2 puff inhalation Q6H PRN #8.5 07/14/22 aerosol inhaler grams doxycycline hyclate 100 mg tablet 100 mg PO BID #10 tabs 07/14/22 ondansetron 4 mg disintegrating 4 mg PO Q8H PRN nausea and 07/14/22 tablet vomiting #10 tabs Previous Rx's Medication Instructions Recorded albuterol sulfate 90 mcg/actuation 2 puff inhalation Q6H PRN #8.5 07/14/22 aerosol inhaler grams doxycycline hyclate 100 mg tablet 100 mg PO BID #10 tabs 07/14/22 ondansetron 4 mg disintegrating 4 mg PO Q8H PRN nausea and 07/14/22 tablet vomiting #10 tabs Allergies Allergy/AdvReac Type Severity Reaction Status Date / Time naproxen [From Naprosyn] Allergy Severe Verified 12/25/21 09:57 General Stated Complaint: Nausea/Vomit/Diar BARON: 3 Review of Systems All systems reviewed & are unremarkable except as noted in HPI and below Constitutional Constitutional: Reports fever(s) and Reports headache(s) ENT Ears, Nose, Mouth, and Throat: Reports headache(s) Cardiovascular Cardiovascular: Denies chest pain Respiratory Respiratory: Reports as per HPI Gastrointestinal Gastrointestinal: Denies abdominal pain, Reports nausea and Reports vomiting Neurologic Neurologic: Reports headache(s) PFSH All Active Problems (Updated 07/14/22 @ 11:01 by Nilo Villanueva MD) Acute bronchitis (Acute) Nausea & vomiting (Acute) Acute dehydration (Acute) Acute hypokalemia (Acute) Chronic insomnia (Acute) De Quervain's tenosynovitis, right (Acute) Depo-Medrol injection: 09/02/2021 Fracture of right distal radius (Acute 03/02/21) Medical History Asthma, intermittent Current non-smoker but past smoking history unknown Depression Kidney stone Social History Smoking/Tobacco Use Status: Former Tobacco Use Quit Date: 11/30/17 Smoking risk assessment performed?: Yes Alcohol Intake: never Drug use: Rarely Substance use type: marijuana Current gender identity: female Do you feel safe at home: Yes Do you feel safe in your relationship?: Yes Exam Const General: cooperative and no acute distress HENMT Mouth: moist mucous membranes Eyes Conjunctivae: normal conjunctivae Sclera: normal sclerae Neck Neck: trachea midline and supple Resp Effort & Inspection: cough Auscultation: rales on the right and rhonchi lower bilaterally Cardio Rate: regular rate and not tachycardic Rhythm: regular rhythm Heart Sounds: no murmurs GI Palpation: soft, not firm, no guarding, no masses, not rigid and nontender Skin General skin exam: no rashes or lesions noted Neuro General: patient alert, patient awake, patient oriented x3 and tone normal Extrem General: no edema Psych Appearance: grossly normal Mental Status: mental status grossly normal Course Vital Signs Vital signs: Vital Signs Temperature 36.5 C 07/14/22 07:31 Pulse 115 H 07/14/22 07:31 Respiratory Rate 20 07/14/22 07:31 Blood Pressure 158/95 H 07/14/22 07:31 Pulse Oximetry 92 07/14/22 07:31 Temperature 36.5 C 07/14/22 07:31 Pulse 72 07/14/22 09:31 Respiratory Rate 14 07/14/22 09:35 Respiratory Effort Normal, Non-Labored 07/14/22 07:34 Blood Pressure 145/88 H 07/14/22 09:31 Blood Pressure Position Sitting 07/14/22 07:31 Pulse Oximetry 93 07/14/22 09:35 Oxygen Delivery Method Room Air 07/14/22 07:31 Oxygen Flow Rate 0 07/14/22 07:31 Lab/Test Results Lab/Test Results: Laboratory Tests Range/Units 07/14/22 07/14/22 07/14/22 07:43 07:43 08:00 WBC (4.4-10.8) 10^3/uL 17.29 H RBC (3.93-5.22) 10^6/uL 5.63 H Hgb (11.2-15.7) g/dL 15.9 H Hct (36.0-46.0) % 46.6 H MCV (80-95) fL 83 MCH (27.0-33.0) pg 28.2 MCHC (32.0-36.0) % 34.1 RDW (11.7-14.6) % 12.5 Plt Count (130-400) 10^3/uL 323 MPV (8.0-11.0) fL 10.5 Immature Gran % 0.4 Neutrophils % 83.1 Lymphocytes % 9.3 Monocytes % 6.7 Eosinophils % 0.2 Basophils % 0.3 Nucleated RBC % (0.0-0.3) % 0.0 Absolute Neutrophils (1.2-6.7) 10^3/uL 14.37 H Absolute Lymphocytes (1.2-3.4) 10^3/uL 1.61 Absolute Monocytes (0.1-0.8) 10^3/uL 1.16 H Absolute Eosinophils (0.0-0.7) 10^3/uL 0.03 Absolute Basophils (0.0-0.2) 10^3/uL 0.05 Sodium (136-145) mmol/L 140 Potassium (3.5-5.1) mmol/L 3.3 L Chloride (98-107) mmol/L 104 Carbon Dioxide (21.0-32.0) mmol/L 25.2 Anion Gap (3-11) mmol/L 10.8 BUN (7-18) mg/dL 9 Creatinine (0.55-1.02) mg/dL 1.0 Est GFR (CKD-EPI 2020) (mL/min/1.73m2) 66.95 Glucose (74-106) mg/dL 117 H Calcium (8.5-10.1) mg/dL 9.8 Magnesium (1.8-2.4) mg/dL 1.8 Total Bilirubin (0.2-1.0) mg/dL 1.0 AST (15-37) U/L 21 ALT (14-59) U/L 29 Alkaline Phosphatase (46-116) U/L 97 Total Protein (6.4-8.2) g/dL 8.8 H Albumin (3.4-5.0) g/dL 4.1 Lipase (16-77) U/L 22 COVID-19 Source Nasal/Nares SARS-CoV-2 (PCR) (Negative) Negative
[2022-07-14] MEDS: Potassium Chloride 20 MEQ TABCR PO (09:59)
[2022-07-14] MEDS: ACETAMINOPHEN 1,000 MG/100 ML BTL 400 MG IVPB (09:59)
[2022-07-14] MEDS: Albuterol HFA 8 GM 60 PUFF INH IH (11:11)
== END 2022-07-14 11:16 | disposition home or self-care (01) ==
PROVIDERS: Emergency Provider Student in an Organized Health Care Education/Training Program; PCP Family Medicine
DX: J20.9 Acute bronchitis, unspecified (principal); R11.2 Nausea with vomiting, unspecified; E86.0 Dehydration; E87.6 Hypokalemia
CPT/HCPCS: 36415; 80053; 83690; 87635; 94640; 96361; 96365; 96368; 96375; 99284; 71046; 83735; 85025; J0131; J2405

== ENCOUNTER 2022-08-05 18:04 | Outpatient (REF) | payer MEDICAID, SELFPAY ==
[2022-08-05 19:04] LABS: Abs Immature Grans 0.02 10^3/uL (0.0-0.06); Absolute Basophil Count 0.06 10^3/uL (0.0-0.2); Absolute Eosinophil Count 0.14 10^3/uL (0.0-0.7); Absolute Lymphocyte Count 1.77 10^3/uL (1.2-3.4); Absolute Monocyte Count 0.68 10^3/uL (0.1-0.8); Basophils % 0.7; Eosinophils % 1.7; HGB 13.6 g/dL (11.2-15.7); Immature Grans % 0.2; Lymphocytes % 21.1; MCHC 32.4 % (32.0-36.0); MCV 86 fL (80-95); MPV 11.1 fL (8.0-11.0); Monocytes % 8.1; Neutrophils % 68.2; Platelet Count 282 10^3/uL (130-400); RBC 4.86 10^6/uL (3.93-5.22); RDW 13.2 % (11.7-14.6); WBC 8.37 10^3/uL (4.4-10.8)
[2022-08-05 19:08] LABS: Anion Gap 7.2 mmol/L (3-11); BUN 22 mg/dL (7-18); CO2 27.8 mmol/L (21.0-32.0); CREATININE 1.1 mg/dL (0.55-1.02); Calcium 9.4 mg/dL (8.5-10.1); Chloride 104 mmol/L (98-107); Estimated GFR 59.71 (mL/min/1.73m2); Glucose 91 mg/dL (74-106); Potassium 4.3 mmol/L (3.5-5.1); Sodium 139 mmol/L (136-145)
== END 2022-08-05 18:05 | disposition home or self-care (01) ==
LOC: NCHCN 18:04
PROVIDERS: PCP Family Medicine; Visit Provider Family Medicine
DX: D72.829 Elevated white blood cell count, unspecified (principal); E87.6 Hypokalemia
CPT/HCPCS: 80048; 85025

== ENCOUNTER 2022-08-14 03:21 | Outpatient (CLI) | payer MEDICAID, SELFPAY ==
--- NOTE | 2022-08-14 07:41 | DI.MAMMO_ITS ---
Exam(s) MAMMO SCREENING EXAM: MAMMO SCREENING CLINICAL HISTORY: SCREENING, Z12.31. TECHNIQUE: Bilateral full field digital CC and MLO mammographic images were obtained with 3D tomosyn thesis and utilizing computer aided detection (CAD). COMPARISON: None. Prior mammogram was 2008 and not available. FINDINGS: There are no spiculated masses nor malignant appearing microcalcification groups. There is no significant architectural distortion nor skin thickening-retraction. IMPRESSION: No radiographic evidence of malignancy. BI-RADS Category 1 - Negative Breast Density - Category B - Scattered areas of fibroglandular density Breast density Category C or D implies that the patient has dense breast tissue. Dense breast tissue can make it harder to find cancer on a mammogram. Dense breast tissue is also associated with an incr eased risk of breast cancer. This information about the result of the mammogram report was provided to the patient to raise their awareness. Use this report when you speak with the patient about their risks for breast cancer, which includes their family history. At that time, you may recommend additional screening tests (Ultrasoun d or MRI) as these tests may add significant information. A negative radiographic report should not delay biopsy if a dominant or clinically suspicious mass is present. Up to ten percent of cancers are not identified on mammography. A negative report may reinforce clinical impression. Adenosis and dense breasts may obscure an underlying neoplasm. False positive reports average 6 to 10%. Patient will receive a letter notifying them of these results.
== END 2022-08-14 03:41 ==
LOC: DI 03:21
PROVIDERS: PCP Family Medicine; Visit Provider Family Medicine
DX: Z12.31 Encounter for screening mammogram for malignant neoplasm of breast (principal)
CPT/HCPCS: 77063; 77067